=== PATIENT | female | born 1940 | race Asian ===

== ENCOUNTER → 2017-06-26 | Outpatient (CLI) | payer OTHER ==
[~2017-06-26] MED LIST: CITA10TA68 PO; CITA10TA7 PO; D-ME118S13 PO; FEXO-58 PO; FLUT1DIS3 IH; LEVO75TA12 PO; LIDOP TP; MELO-273; METF1000 PO; MOME17N NASAL; MONT10TA21 PO; MULT1CAP42 PO; PANT40TA25; PREG75 PO; PREN1TAB25 PO; RALO60 PO; TRIAMCINOLONE
== END | disposition home or self-care (01) ==
LOC: RADPV 10:23
PROVIDERS: ATTEND Internal Medicine
DX: R91.8 Other nonspecific abnormal finding of lung field (principal); I70.0 Atherosclerosis of aorta; I51.7 Cardiomegaly; J84.10 Pulmonary fibrosis, unspecified; M47.819 Spondylosis without myelopathy or radiculopathy, site unspecified
CPT/HCPCS: 71020

== ENCOUNTER 2022-12-26 15:20 | Emergency (ER) | payer MEDICARE, OTHER ==
[~2022-12-26] VITALS: Ht 154.9 cm; Wt 79.5 kg
[~2022-12-26 15:20] MED LIST changes: -CITA10TA68 PO; -CITA10TA7 PO; +CITA10TA89 PO; -D-ME118S13 PO; +FEXO-353 PO; -FEXO-58 PO; -LIDOP TP; +MELO-106; -MELO-273; -MOME17N NASAL; +MOME17SP4 NASAL; +MONT-35 PO; -MONT10TA21 PO; -PANT40TA25; +PROM118S5 PO; +TIOT185 IH
[2022-12-26] MEDS ORDERED: CARV6.2534 PO (16:28)
[2022-12-26] MEDS ORDERED: PREG100C55 PO (16:28)
[2022-12-26] MEDS ORDERED: MULT-1336 PO (16:28)
[2022-12-26] MEDS ORDERED: METF-1211 PO (16:28)
[2022-12-26] MEDS ORDERED: APIX5TAB PO (16:28)
[2022-12-26] MEDS ORDERED: LEVO100 PO (16:28)
[2022-12-26] MEDS ORDERED: SIMV10TA97 PO (16:28)
[2022-12-26] MEDS ORDERED: CITA-144 PO (16:28)
[2022-12-26] MEDS ORDERED: CHOL200074 PO (16:28)
[2022-12-26] MEDS ORDERED: DICL100G31 TP (16:28)
[2022-12-26] MEDS ORDERED: SITA50 PO (16:28)
[2022-12-26] MEDS ORDERED: BUDE10.2 IH (16:28)
[2022-12-26] MEDS ORDERED: MONT-40 PO (16:28)
[2022-12-26] MEDS ORDERED: MIRT-92 PO (16:28)
[2022-12-26] MEDS ORDERED: RALO60TA13 PO (16:28)
[2022-12-26] MEDS ORDERED: CALC-1274 PO (16:28)
[2022-12-26] MEDS ORDERED: FLUT16SP NASAL (16:28)
[2022-12-26] MEDS ORDERED: ASPI-1444 PO (16:28)
[2022-12-26] MEDS ORDERED: OMEP20CA12 PO (16:28)
[2022-12-26] MEDS ORDERED: NITROGLYCERIN 50 MG/D5% WATER 250 ML IV PRN (16:30)
[2022-12-26 17:58] LABS: BASOPHILS % (AUTO) 1.1 % (0.0-2.0); EOSINOPHILS % (AUTO) 1.4 % (1.0-6.0); HEMATOCRIT 39.4 % (36-46); HEMOGLOBIN 11.8 g/dL (12.0-16.0); LYMPHOCYTES # (AUTO) 2.2 K/uL (1.0-4.8); LYMPHOCYTES % (AUTO) 12.7 % (22.0-44.0); MEAN CORPUSCULAR HEMOGLOBIN 19.6 pg (26.0-34.0); MEAN CORPUSCULAR HGB CONC 29.9 G/dL (31.0-37.0); MEAN CORPUSCULAR VOLUME 66 fL (80-100); MONOCYTES # (AUTO) 0.8 K/uL (0.1-1.0); MONOCYTES % (AUTO) 4.8 % (2.0-9.0); NEUTROPHILS # (AUTO) 13.9 K/uL (1.8-7.7); PLATELET COUNT (AUTO) 220 K/uL (150-450); RED BLOOD CELL COUNT(AUTO) 5.99 MIL/uL (4.00-5.20); RED CELL DISTRIBUTION WIDTH 16.1 % (11.5-14.5)
[2022-12-26 18:19] LABS: INR 1.1 (0.9-1.1); PROTHROMBIN TIME 11.2 SEC (9.4-11.6)
[2022-12-26 19:14] LABS: CALCIUM, TOTAL 8.3 mg/dL (8.8-10.5); CREATININE 1.17 mg/dL (0.60-1.30); POTASSIUM 4.8 mmol/L (3.5-5.1)
[2022-12-26 19:19] LABS: ALBUMIN 2.9 g/dL (3.4-5.0); BILIRUBIN,TOTAL 0.5 mg/dL (0.1-1.0); TOTAL PROTEIN, SERUM 7.8 g/dL (6.4-8.2)
[2022-12-26] MEDS ORDERED: CefTRIAXone 1 GM/DEXTROSE 50 ML IV ONE (19:45)
[2022-12-26] MEDS ORDERED: AZITHROMYCIN 500 MG/NS 250 ML IV ONE (19:45)
[2022-12-26 20:10] LABS: COVID AG,FIA SOURCE NASAL SWAB
[2022-12-26 20:19] LABS: APPEARANCE,URINE CLEAR (CLEAR); BILIRUBIN,URINE NEGATIVE (NEGATIVE); GLUCOSE, URINE (UA) NEGATIVE (NEGATIVE); KETONES,URINE NEGATIVE (NEGATIVE); LEUKOCYTE ESTERASE ,URINE NEGATIVE (NEGATIVE); NITRATE,URINE NEGATIVE (NEGATIVE); OCCULT BLOOD,URINE NEGATIVE (NEGATIVE); PH,URINE 5.5 (5.0-8.0); PROTEIN,URINE NEGATIVE (NEGATIVE); SPECIFIC GRAVITIY, URINE 1.011 (1.003-1.030); UROBILINOGEN,URINE <=1.0 mg/dL (<=1.0)
[2022-12-26 23:18] VITALS: BP 131/75
== END 2022-12-27 00:22 | disposition short-term general hospital (02) ==
LOC: EMS 15:20
DX: J18.9 Pneumonia, unspecified organism (principal); F41.9 Anxiety disorder, unspecified; E11.9 Type 2 diabetes mellitus without complications; F03.90 Unspecified dementia, unspecified severity, without behavioral disturbance, psychotic disturbance, mood disturbance, and anxiety; E78.00 Pure hypercholesterolemia, unspecified; E03.9 Hypothyroidism, unspecified; Z91.011 Allergy to milk products; Z91.040 Latex allergy status; Z20.822 Contact with and (suspected) exposure to COVID-19
CPT/HCPCS: 99285; 96365; 71045; 87426; 80053; 81003; 83880; 84484; 85025; 85610; 85730; 87040; 93005; 96368; 36415; J0456; J0696